=== PATIENT | female | born 1960 ===

== ENCOUNTER 2016-11-10 09:31 | Emergency (ER) | payer OTHER ==
[2016-11-10 09:31] VITALS: BMI 39.0
[2016-11-10 09:45] VITALS: BP 156/94; PULSE 58; RESP 19; TEMP 97.5; O2SAT 99
[2016-11-10] MEDS ORDERED: Naproxen 500 MG TAB PO ONE ×2 (10:17→10:19)
--- NOTE | 2016-11-10 10:51 | ED PDOC ---
Upper Extremity Pain/Injury Chief Complaint (Nursing): Upper Extremity Problem/Injury History Per: Patient History/Exam Limitations: no limitations Onset/Duration Of Symptoms: Days (3), Gradual Quality: Other (numbness and tingling of the right forearm, traveling up the right arm and then across to the left upper extremity.) Past Medical History Reviewed: Historical Data, Nursing Documentation, Vital Signs Vital Signs: Last Vital Signs Temp 97.5 F L 11/10/16 09:42 Pulse 58 L 11/10/16 09:42 Resp 19 11/10/16 09:42 BP 156/94 H 11/10/16 09:42 Pulse Ox 99 11/10/16 09:42 - Medical History PMH: Asthma, COPD, Emphysema, HTN Denies: HIV, Chronic Kidney Disease - Surgical History Surgical History: Cholecystectomy, (x 3) - Family History Family History: States: Unknown Family Hx - Living Arrangements Living Arrangements: With Family - Social History Current smoker - smoking cessation education provided: No Ex-Smoker (has not smoked in the last 12 months): Yes Alcohol: Occasional - Immunization History Hx Tetanus Toxoid Vaccination: No Hx Influenza Vaccination: No Hx Pneumococcal Vaccination: No - Home Medications Home Medications: Ambulatory Orders Medication Instructions Recorded Enalapril Maleate 10 mg PO DAILY 04/13/15 Albuterol/Ipratropium [Duoneb 3 3 ml IH Q6 PRN #60 ml 08/07/16 mg/0.5 mg (3 ml) UD] Promethazine/Codeine 10 ml PO Q8H PRN 08/07/16 [Phenergan/Codeine Oral Syrup] Albuterol/Ipratropium [Duoneb 3 3 ml INH RQ6 #100 neb 08/13/16 mg/0.5 mg (3 ml) UD] Azithromycin [Zithromax] 250 mg PO DAILY #6 tab 08/13/16 predniSONE [predniSONE Tab] 10 mg PO DAILY 5 Days 08/13/16 Cyclobenzaprine [Flexeril] 10 mg PO TID #30 tab 11/10/16 Naproxen [Naprosyn] 500 mg PO BID PRN #20 tablet 11/10/16 - Allergies Allergies/Adverse Reactions: Allergies Allergy/AdvReac Type Severity Reaction Status Date / Time iodine Allergy RASH Verified 11/10/16 09:42 latex Allergy RASH Verified 11/10/16 09:42 moxifloxacin Allergy RASH Verified 11/10/16 09:42 prednisolone Allergy RASH Verified 11/10/16 09:42 Review of Systems ROS Statement: Except As Marked, All Systems Reviewed And Found Negative Respiratory: Positive for: Cough Gastrointestinal: Negative for: Nausea, Vomiting Neurological: Negative for: Weakness, Incoordination, Change in Speech, Confusion, Seizures, Altered Mental Status, Headache, Dizziness Physical Exam - Reviewed Nursing Documentation Reviewed: Yes Vital Signs Reviewed: Yes - Physical Exam Appears: Positive for: Well, Non-toxic, No Acute Distress Head Exam: Positive for: ATRAUMATIC, NORMAL INSPECTION, NORMOCEPHALIC Skin: Positive for: Normal Color, Warm, DRY Eye Exam: Positive for: EOMI, Normal appearance, PERRL ENT: Positive for: Normal ENT Inspection Neck: Positive for: Normal, Painless ROM Cardiovascular/Chest: Positive for: Regular Rate, Rhythm Respiratory: Positive for: CNT, Normal Breath Sounds Gastrointestinal/Abdominal: Positive for: Normal Exam, Bowel Sounds, Soft Back: Positive for: Normal Inspection Extremity: Positive for: Normal ROM Neurologic/Psych: Positive for: Alert, Oriented - ECG O2 Sat by Pulse Oximetry: 99 - Radiology X-Ray: Read By Radiologist X-Ray Interpretation: No Acute Disease (DJD of the C-spine) - Progress Condition: Re-examined, Improved Disposition - Clinical Impression Clinical Impression: Degenerative disc disease, cervical - Patient ED Disposition Is Patient to be Admitted: No Doctor Will See Patient In The: Office Counseled Patient/Family Regarding: Diagnosis, Need For Followup, Rx Given - Disposition Referrals: Qamar Cavazos MD [Family Provider] - Disposition: Routine/Home Disposition Time: 11:28 Condition: IMPROVED Prescriptions: Cyclobenzaprine [Flexeril] 10 mg PO TID #30 tab Naproxen [Naprosyn] 500 mg PO BID PRN #20 tablet PRN Reason: Pain, Moderate (4-7) Instructions: Muscle Strain (ED), Cervical Strain (DC) - POA Present On Arrival: None
--- NOTE | 2016-11-10 11:00 | RAD ---
PROCEDURE: Radiographs of the Right Shoulder HISTORY: right shoulder pain COMPARISON: No prior. FINDINGS: BONES: Normal. No fracture. No lytic process is seen. JOINTS: Normal. Glenohumeral and acromioclavicular joints preserved. No osteoarthritis. SOFT TISSUES: No evidence of calcific bursitis. OTHER FINDINGS: Scapula is intact. No AC joint widening is seen. Right ribs are intact. IMPRESSION: Unremarkable right shoulder x-ray. No evidence of calcific bursitis or fracture.
--- NOTE | 2016-11-10 11:03 | RAD ---
PROCEDURE: Cervical Spine Radiographs. HISTORY: Pain. COMPARISON: None. FINDINGS: BONES: Five views of the cervical spine were performed including oblique views. There is minor disc space narrowing at C5-6. Very mild endplate changes are noted. No malalignment is seen. No prevertebral soft tissue swelling is seen. No jumped facets are identified. Posterior elements are intact. No cervical ribs are seen. Lung apices are unremarkable. C1-C2 articulation is within normal limits. Mild bony neural foraminal narrowing is not excluded at C5-6 and C6-7. DISC SPACES: See above SOFT TISSUES: Normal. No prevertebral soft tissue swelling. OTHER FINDINGS: None visualized mandible and temporomandibular joint are unremarkable. Visualized clavicles are intact. IMPRESSION: Mild degenerative disc disease at C5-6. No evidence of fracture or malalignment.
== END 2016-11-10 11:41 | disposition home or self-care (01) ==
LOC: H.ER 09:31
DX: M50.30 Other cervical disc degeneration, unspecified cervical region (principal); I10 Essential (primary) hypertension; Z87.891 Personal history of nicotine dependence

== ENCOUNTER 2017-03-30 11:48 | Emergency (ER) | payer SELFPAY ==
[2017-03-30 11:48] VITALS: BMI 39.0
[2017-03-30 11:54] VITALS: BP 156/84; PULSE 68; RESP 18; TEMP 98.2; O2SAT 98
[2017-03-30] MEDS ORDERED: Sodium Chloride 0.9% 1,000 ML IV STA (12:06)
--- NOTE | 2017-03-30 12:16 | ED PDOC ---
HPI: General Adult Time Seen by Provider: 03/30/17 11:56 Chief Complaint (Nursing): Dizziness/Lightheaded Chief Complaint (Provider): Dizziness/Lightheaded History Per: Patient History/Exam Limitations: no limitations Onset/Duration Of Symptoms: Days (x2 days) Current Symptoms Are (Timing): Still Present Additional Complaint(s): 56 y/o female with a past medical hisotry of asthma who presents to the emergency department with a complaint of dizziness and nausea x2 days. Associated with palpitations. States symptoms worsens with movement. Reports mild improvement but still present. Denies vomiting, headache, and chest pain. PMD: Dr. Qamar Cvaazos MD Past Medical History Reviewed: Historical Data, Nursing Documentation, Vital Signs Vital Signs: Last Vital Signs Temp 98.2 F 03/30/17 11:52 Pulse 68 03/30/17 11:52 Resp 18 03/30/17 11:52 BP 156/84 H 03/30/17 11:52 Pulse Ox 98 03/30/17 13:14 - Medical History PMH: Asthma, COPD, Emphysema, HTN Denies: HIV, Chronic Kidney Disease - Surgical History Surgical History: Cholecystectomy, (x 3) - Family History Family History: States: Unknown Family Hx - Social History Current smoker - smoking cessation education provided: No Ex-Smoker (has not smoked in the last 12 months): Yes Alcohol: None Drugs: Denies - Immunization History Hx Tetanus Toxoid Vaccination: No Hx Influenza Vaccination: No Hx Pneumococcal Vaccination: No - Home Medications Home Medications: Ambulatory Orders Medication Instructions Recorded Enalapril Maleate 10 mg PO DAILY 04/13/15 Albuterol/Ipratropium [Duoneb 3 3 ml IH Q6 PRN #60 ml 08/07/16 mg/0.5 mg (3 ml) UD] Promethazine/Codeine 10 ml PO Q8H PRN 08/07/16 [Phenergan/Codeine Oral Syrup] Albuterol/Ipratropium [Duoneb 3 3 ml INH RQ6 #100 neb 08/13/16 mg/0.5 mg (3 ml) UD] Azithromycin [Zithromax] 250 mg PO DAILY #6 tab 08/13/16 predniSONE [predniSONE Tab] 10 mg PO DAILY 5 Days 08/13/16 Cyclobenzaprine [Flexeril] 10 mg PO TID #30 tab 11/10/16 Naproxen [Naprosyn] 500 mg PO BID PRN #20 tablet 11/10/16 Meclizine [Meclizine*] 25 mg PO Q8 #15 tab 03/30/17 - Allergies Allergies/Adverse Reactions: Allergies Allergy/AdvReac Type Severity Reaction Status Date / Time iodine Allergy RASH Verified 03/30/17 11:52 latex Allergy RASH Verified 03/30/17 11:52 moxifloxacin Allergy RASH Verified 03/30/17 11:52 prednisolone Allergy RASH Verified 03/30/17 11:52 Review of Systems ROS Statement: Except As Marked, All Systems Reviewed And Found Negative Cardiovascular: Positive for: Palpitations. Negative for: Chest Pain Gastrointestinal: Positive for: Nausea. Negative for: Vomiting Neurological: Positive for: Dizziness. Negative for: Headache Physical Exam - Reviewed Nursing Documentation Reviewed: Yes Vital Signs Reviewed: Yes - Physical Exam Appears: Positive for: Non-toxic, No Acute Distress Head Exam: Positive for: ATRAUMATIC, NORMAL INSPECTION, NORMOCEPHALIC Skin: Positive for: Normal Color, Warm, Dry Neck: Positive for: Normal, Supple Cardiovascular/Chest: Positive for: Regular Rate, Rhythm. Negative for: Murmur Respiratory: Positive for: Normal Breath Sounds. Negative for: Accessory Muscle Use, Respiratory Distress Gastrointestinal/Abdominal: Positive for: Normal Exam, Soft. Negative for: Tenderness Extremity: Positive for: Normal ROM. Negative for: Pedal Edema Neurologic/Psych: Positive for: Alert, Oriented (x3) - Laboratory Results Result Diagrams: 03/30/17 12:20 03/30/17 12:20 - ECG O2 Sat by Pulse Oximetry: 98 (RA) Pulse Ox Interpretation: Normal Medical Decision Making Medical Decision Making: Time: 12:04 Initial impression: Dizziness Initial plan: --EKG --BMP --CBC w/ diff --Antivery 25 mg PO --Sodium Chloride 1,000 L IV 100 mls/hr --Reevaluation Scribe Attestation: Documented by Violeta Padilla, acting as a scribe for Grant Rodgers MD. Provider Scribe Attestation: All medical record entries made by the Scribe were at my direction and personally dictated by me. I have reviewed the chart and agree that the record accurately reflects my personal performance of the history, physical exam, medical decision making, and the department course for this patient. I have also personally directed, reviewed, and agree with the discharge instructions and disposition. Disposition - Clinical Impression Clinical Impression: Vertigo - Patient ED Disposition Is Patient to be Admitted: No Counseled Patient/Family Regarding: Studies Performed, Diagnosis, Need For Followup, Rx Given - Disposition Referrals: Qamar Cavazos MD [Family Provider] - Disposition: Routine/Home Disposition Time: 13:21 Condition: FAIR Prescriptions: Meclizine [Meclizine*] 25 mg PO Q8 #15 tab Instructions: Vertigo (ED) Forms: [employer] (Swazi)
[2017-03-30 12:36] LABS: BASO # 0.1 K/uL (0.0-0.2); BASO % 0.8 % (0.0-2.0); EOS # 0.1 K/uL (0.0-0.7); HEMOGLOBIN 13.9 g/dL (12.0-16.0); LYMPH # 0.9 K/uL (1.0-4.3); LYMPH % 13.5 % (20.0-40.0); MEAN CELL VOLUME 72.1 fl (81.0-99.0); MEAN CORPUSCULAR HEMOGLOBIN 22.2 pg (27.0-31.0); MEAN CORPUSCULAR HGB CONC 30.9 g/dL (33.0-37.0); MEAN PLATELET VOLUME 10.4 fl (7.2-11.7); MONO # 0.6 K/uL (0.0-0.8); MONO % 8.6 % (0.0-10.0); NEUT # 5.2 K/uL (1.8-7.0); NEUT % 76.1 % (50.0-75.0); NRBC % 0.2 % (0.0-0.0); RBC 6.26 Mil/uL (3.80-5.20); RED CELL DISTRIBUTION WIDTH 15.4 % (11.5-14.5); WHITE BLOOD COUNT 6.8 K/uL (4.8-10.8)
[2017-03-30 12:41] LABS: BLOOD UREA NITROGEN 13 mg/dl (7-17); CALCIUM 9.4 mg/dL (8.4-10.2); GFR AFRICAN-AMERICAN > 60; GFR NON-AFRICAN AMERICAN > 60
--- NOTE | 2017-03-30 14:14 | CARD ---
APPROVED REPORT EKG Measurement Heart [id number] <Conclusion> Sinus bradycardia Otherwise normal ECG
== END 2017-03-30 13:45 | disposition home or self-care (01) ==
LOC: H.ER 11:48
DX: R42 Dizziness and giddiness (principal); I10 Essential (primary) hypertension; J44.9 Chronic obstructive pulmonary disease, unspecified
CPT/HCPCS: 80048; 85025; 93005; 99285; J7040